=== PATIENT | male | born 1945 | race Caucasian/White ===

== ENCOUNTER 2019-04-19 08:52 | Day surgery (SDC) | payer MEDICARE, MEDICAID ==
[~2019-04-19] VITALS: Ht 162.6 cm; Wt 79.4 kg
[2019-04-19] VITALS (7 sets, daily range): BP systolic 113–150; BP diastolic 50–90
[~2019-04-19 08:52] MED LIST: ASPIRIN-LOW81 MG ORAL; ATORVASTATIN CA40 MG ORAL; CHOLESTEROL PILL PO; LISINOPRIL10 MG ORAL; METOPROLOL TART50 MG ORAL; PROSCAR5 MG ORAL
[2019-04-19 09:18] LABS: BASOPHILS % (AUTO) 0.5 % (0.0-2.0); EOSINOPHILS % (AUTO) 0.9 % (0.0-3.0); HEMATOCRIT 32.9 % (42.0-52.0); HEMOGLOBIN 10.6 G/DL (14.2-18.0); LYMPHOCYTES % (AUTO) 14.8 % (20.0-45.0); MEAN CORPUSCULAR VOLUME 94 FL (80-99); MONOCYTES % (AUTO) 14.9 % (1.0-10.0); PLATELET COUNT 177 K/UL (150-450); RED BLOOD COUNT 3.51 M/UL (4.70-6.10); RED CELL DISTRIBUTION WIDTH 13.3 % (11.6-14.8); WHITE BLOOD COUNT 8.3 K/UL (4.8-10.8)
[2019-04-19 09:32] LABS: INR 1.1 (0.9-1.1)
[2019-04-19] MEDS ORDERED: FUROSEMIDE20 M1 ORAL (09:50)
[2019-04-19] MEDS ORDERED: POTASSIUM99 M3 PO (09:50)
[2019-04-19] MEDS ORDERED: FLOMAX0.4 MG ORAL (09:50)
[2019-04-19] MEDS ORDERED: AMIODARONE HCL100 MG ORAL (09:50)
[2019-04-19] MEDS ORDERED: JANUVIA25 MG ORAL (09:51)
[2019-04-19] MEDS ORDERED: PLAVIX75 MG ORAL (09:55)
--- NOTE | 2019-04-19 11:49 | Pre-Procedure Note/Attestation ---
Pre-Procedure Note/Attestation Complete Prior to Procedure Planned Procedure: right Procedure Narrative: thoracentesis Indications for Procedure Pre-Operative Diagnosis: Pleural effusion Attestation I attest that I discussed the nature of the procedure; its benefits; risks and complications; and alternatives (and the risks and benefits of such alternatives ), prior to the procedure, with the patient (or the patient's legal motor vehicle representative). I attest that, if there was a reasonable possibility of needing a blood transfusion, the patient (or the patient's legal motor vehicle representative) was given the [facility] standardized written summary, pursuant to the [place] [employer] [place] Blood Safety Act ([place] Health and Safety Code # 1645, as amended). I attest that I re-evaluated the patient just prior to the surgery and that there has been no change in the patient's H&P, except as documented below: Kavon Leonard MD Apr 19, 2019 11:49
--- NOTE | 2019-04-19 11:50 | Brief Operative Note ---
Immediate Post Operative Note Operative Note Pre-op Diagnosis: Pleural effusion Procedure: Thoracentesis Post-op Diagnosis: same as pre-op Surgeon: Blaire Sims Anesthesia: local Specimen: yes - yellow fluid sent to lab Complications: none Fluids: none Implant(s) used?: No Kavon Sims MD Apr 19, 2019 11:50
--- NOTE | 2019-04-19 11:57 | Diagnostic Imaging Report ---
Indications: Pleural effusion Technique: Ultrasound used to localize optimal puncture site. Sterile prepping and draping right chest. Local anesthesia with 1% lidocaine. Under real-time ultrasound guidance, puncture pleural space using thoracentesis needle. Stylet removed. Catheter placed to vacuum bottle suction. Total 650 milliliters of clear yellow fluid aspirated. Patient tolerated procedure well, without immediate complication. Findings: Followup sonography demonstrates complete resolution of pleural fluid. Impression: Successful ultrasound-guided thoracentesis, yielding 650 milliliters of fluid
--- NOTE | 2019-04-19 11:58 | Diagnostic Imaging Report ---
Indication: Status post right thoracentesis Technique: One view of the chest Comparison: none Findings: There is elevation right hemidiaphragm. No evidence of residual pleural fluid. No pneumothorax. There is minimal atelectasis at the right lung base and perihilar region. The lungs and pleural spaces are otherwise clear. The heart size is normal. Is a left chest pacemaker Impression: No radiographically evident complication, status post thoracentesis Findings as noted
== END 2019-04-19 13:30 | disposition home or self-care (01) ==
LOC: ULS 08:52 → SUR 08:52 → ULS 13:30
DX: J90 Pleural effusion, not elsewhere classified (principal); Z95.0 Presence of cardiac pacemaker; J98.11 Atelectasis; Z79.899 Other long term (current) drug therapy; Z79.82 Long term (current) use of aspirin; E78.00 Pure hypercholesterolemia, unspecified; N18.9 Chronic kidney disease, unspecified; Z87.891 Personal history of nicotine dependence
CPT/HCPCS: 36415; 71045; 76942; 82962; 85025; 85610; 85730; 88104